=== PATIENT | male | born 1965 | race Caucasian/White ===

== ENCOUNTER 2023-03-06 05:17 | Inpatient (IN) | payer MEDICAID ==
[2023-02-27 10:57] LABS: BASOPHILS # (AUTO) 0.1 X10'3 (0-0.2); BASOPHILS % (AUTO) 0.8 % (0-1); EOSINOPHILS # (AUTO) 0.3 X10'3 (0-0.9); EOSINOPHILS % (AUTO) 3.2 % (0-6); LYMPHOCYTES # (AUTO) 2.9 X10'3 (1.1-4.8); LYMPHOCYTES % (AUTO) 27.2 % (21-51); MEAN CORPUSCULAR HEMOGLOBIN 28.6 PG (27.0-31.0); MEAN CORPUSCULAR HGB CONC 33.3 g/dL (33.0-36.5); MEAN PLATELET VOLUME 8.3 FL (7.4-10.4); MONOCYTES # (AUTO) 0.9 X10'3 (0-0.9); MONOCYTES % (AUTO) 8.7 % (2-12); NEUTROPHILS # (AUTO) 6.3 X10'3 (1.8-7.7); NEUTROPHILS % (AUTO) 60.1 % (42-75); PRE OP HEMATOCRIT 41.9 % (42.0-52.0); PRE OP PLATELET COUNT 364 X10'3 (140-440); PRE OP WHITE BLOOD COUNT 10.5 10'3 (4.8-10.8); RED BLOOD COUNT 4.87 X10'6 (4.70-6.10); RED CELL DISTRIBUTION WIDTH 15.2 % (11.5-14.5)
[2023-02-27 10:57] LABS: BILIRUBIN,URINE NEGATIVE (Neg); CLARITY,URINE CLEAR (Clear); COLOR,URINE YELLOW (Yellow); GLUCOSE, URINE 100 mg/dl (Neg); KETONES,URINE NEGATIVE (Neg); LEUKOCYTE ESTERASE ,URINE NEGATIVE (Neg); NITRITES, URINE NEGATIVE (Neg); OCCULT BLOOD,URINE NEGATIVE (Neg); PROTEIN,URINE NEGATIVE (Neg); UROBILINOGEN,URINE 0.2 E.U/dL (0.2-1.0)
[2023-02-27 11:03] LABS: UA COLLECTION TYPE NON-SPECIFIED
[2023-02-27 11:11] LABS: ALBUMIN 3.7 G/DL (3.4-5.0); ALBUMIN/GLOBULIN RATIO 0.9 (1.1-1.5); ALKALINE PHOSPHATASE 108 IU/L (46-116); BLOOD UREA NITROGEN 21 MG/DL (7-18); BUN/CREATININE RATIO 20.2 (10.0-20.0); CALCIUM 8.9 MG/DL (8.5-10.1); CHLORIDE 102 MMOL/L (99-107); CREATININE 1.04 MG/DL (0.60-1.10); PRE OP ALT 25 U/L (30-65); PRE OP ANION GAP 11 (8-16); PRE OP AST 16 U/L (10-37); PRE OP BILIRUB, TOTAL 0.3 MG/DL (0.0-1.0); PRE OP POTASSIUM 3.4 MMOL/L (3.4-5.1); PRE OP SODIUM 136 MMOL/L (135-145); TOTAL CARBON DIOXIDE 23.2 MMOL/L (24-32); TOTAL PROTEIN 7.6 G/DL (6.4-8.2); eGFR 73 ML/MIN
[2023-02-27 11:23] LABS: PRE OP GLUCOSE 254 MG/DL (70-104)
[2023-02-27 11:58] LABS: HEMOGLOBIN A1C 10.6 % (4.5-6.2)
[2023-03-06] VITALS (29 sets, daily range): BP systolic 114–157; BP diastolic 76–106; PULSE 65–97; RESP 11–21; TEMP 96.3–98.4; O2SAT 91–99
[~2023-03-06] VITALS: Ht 160 cm; Wt 110.0 kg
[~2023-03-06 05:17] MED LIST: GLYB2.5T4 PO; INSU100I39 SQ; LANTUS SQ; LEVO50TA8 PO; MELO-102 PO; METF-438 PO; SIMV-42 PO; ZOLP10TA PO; ringers solution, lacted 1,000 ML IV SCH
[2023-03-06] MEDS ORDERED: cefazolin 2gm/D5W 100mL 100 ML IV ONE (05:30)
[2023-03-06] MEDS ORDERED: famotidine 20mg tablet PO ONE (05:30)
[2023-03-06] MEDS ORDERED: BUPIVAcaine/PF 2.5 mg/ml (0.25%) 30ml vial ONE (08:03)
[2023-03-06] MEDS ORDERED: labetalol 20mg/4ml (5mg/ml) syringe IV PRN (09:05)
[2023-03-06] MEDS ORDERED: meperidine/PF 25mg/ml syringe IV PRN ×3 (09:05)
[2023-03-06] MEDS ORDERED: ondansetron/PF 4mg/2ml inj IV PRN ×2 (09:05→09:50)
[2023-03-06] MEDS ORDERED: enalaprilat dihydrate 2.5mg/2ml vial IV PRN (09:05)
[2023-03-06] MEDS ORDERED: morphine 2 MG/ML inj. syringe IV PRN (09:05)
[2023-03-06] MEDS ORDERED: ringers solution, lacted 1,000 ML IV SCH (09:05)
[2023-03-06] MEDS ORDERED: morphine 4 MG/ML inj SYRINge IV PRN (09:05)
[2023-03-06] MEDS ORDERED: ketorolac trometh. 30mg/ml inj. IV ONE (09:05)
[2023-03-06] MEDS ORDERED: proCHLORperazine 10 MG/2 ml inj IV PRN (09:05)
[2023-03-06] MEDS ORDERED: midazolam 1 mg/ML 2ml injection ONE (09:11)
[2023-03-06] MEDS ORDERED: fentaNYL /PF 50mcg/ml 5ml ampule ONE (09:11)
[2023-03-06] MEDS ORDERED: rocuronium 10mg/ml inj IV ONE ×2 (09:13→09:14)
[2023-03-06] MEDS ORDERED: dexamethasone sod phosphate 4mg/ml inj. ONE (09:14)
[2023-03-06] MEDS ORDERED: LIDOcaine 2% (20mg/ml) 5ml vial ONE (09:14)
[2023-03-06] MEDS ORDERED: propofol inj 20 ML IV ONE (09:14)
[2023-03-06] MEDS ORDERED: HYDROcodone/acetaminophen 5mg/325mg tablet PO PRN (09:50)
[2023-03-06] MEDS ORDERED: ondansetron/PF 4mg/2ml inj ONE (09:56)
[2023-03-06] MEDS ORDERED: BUPIVAcaine/PF 2.5 mg/ml (0.25%) 30ml vial IJ ONE (10:07)
[2023-03-06] MEDS ORDERED: neostigmine methylsulfate 1 MG/ML 10ml vial ONE (10:30)
[2023-03-06] MEDS ORDERED: glycopyrrolate 0.2mg/ml inj ONE (10:30)
[2023-03-06] MEDS ORDERED: ketorolac trometh. 30mg/ml inj. ONE (10:41)
--- NOTE | 2023-03-06 10:48 | NUR ---
Received from OR via [facility], accompanied by Anesthesiologist and report given by RAMIN Anesthesiologist. PATIENT WAKING UP, NO S/S OF PAIN, V/S WNL, SCD ON , PIV 20G RIGHT FOREARM, ABDOMEN DRESSING C/D/I WITH ABDOMINAL BINDER. HOU CATHETER DRAINING CLEAR YELLOW URINE. Addendum: 03/06/23 at 1115 by Pramod Sun RN Amended: Links added.
[2023-03-06] MEDS ORDERED: VANCOmycin 1250MG/NS 250ml Bag 250 ML IV SCH (11:00)
[2023-03-06] MEDS ORDERED: ringers solution, lacted 1,000 ML IV ONE (11:25)
[2023-03-06] MEDS ORDERED: MESSAGE TO PHARMACY PO ONE (11:45)
[2023-03-06] MEDS ORDERED: glucagon, human recombinant 1mg kit SUBCUT PRN (11:45)
[2023-03-06] MEDS ORDERED: dextrose 50%-water 50ml dispensing syringe IV PRN ×2 (11:45)
[2023-03-06] MEDS ORDERED: DEXTROSE 15 GM of carb/4 tabs (each vial/BOTTLE has 4 tablets) PO PRN ×2 (11:45)
[2023-03-06] MEDS ORDERED: VANCOmycin 1250MG/NS 250ml Bag 250 ML IV ONE (11:55)
[2023-03-06] MEDS ORDERED: polyvinyl alcohol ophthalmic drops 15ml bottle EACHEYE PRN (12:10)
[2023-03-06 12:43] LABS: CREATININE 0.99 MG/DL (0.60-1.10); eCRCL 65 ML/MIN; eGFR 77 ML/MIN
--- NOTE | 2023-03-06 14:08 | NUR ---
PATIENT HAS MET ALL CRITERIA FOR TRANSFER TO ORTHO FLOOR. VSS. DRESSINGS INTACT. BED LOW, CALL LIGHT PRESENT AND 2 RAILS UP. RN PRESENT TO ACCEPT CARE OF PATIENT AND REPORT HAS BEEN CALLED. ALL QUESTIONS ANSWERED TO ACCEPTING RN. Addendum: 03/06/23 at 1412 by Pramod Sun RN Amended: Links added.
--- NOTE | 2023-03-06 14:10 | NUR ---
Assumed patient care, transported from [facility] via gurney. Patient alert and appropriate at time of admission. Oriented to fall precautions, call light and room. Questions answered. Shadowing noted to AJ Salinas, yasmany in place.
[2023-03-06] MEDS: HYDROcodone/acetaminophen 10/325mg tab PO PRN (14:59)
--- NOTE | 2023-03-06 15:21 | NUR ---
Critical 4.5 lactic acid reported by lab, notified with orders to repeat level and swap fluid for NS.
[2023-03-06] MEDS: normal saline 1000ml 1,000 ML IV SCH (15:52)
--- NOTE | 2023-03-06 18:00 | NUR ---
I have reviewed and agree with interventions, assessments, and documentation by Mora Austin LVN.
--- NOTE | 2023-03-06 18:39 | NUR ---
Patient in room ORTHO 4018. I have received report from GURMEET Velazco and had the opportunity to ask questions and assume patient care.
[2023-03-06] MEDS: insulin Lispro (HumaLOG) vial - multi-dose SQ SCH ×2 (19:02→20:39)
[2023-03-06] MEDS: vancomycin/NS 1 GM ADD-VANTAGE 250 ML IV SCH (19:59)
[2023-03-06] MEDS: heparin, porcine 5000 units/ml vial SQ SCH (20:06)
[2023-03-06] MEDS ORDERED: atorvastatin 10mg tablet PO SCH (21:00)
[2023-03-06] MEDS ORDERED: zolpidem 5mg tablet PO SCH (21:00)
[2023-03-06] MEDS ORDERED: insulin glargine (Lantus) pen - multi-dose SQ SCH ×2 (21:00)
[2023-03-06] MEDS: lansoprazole 15mg solutab PO SCH (22:30)
[2023-03-07] MEDS ORDERED: VANCOmycin 1250MG/NS 250ml Bag 250 ML IV SCH (01:00)
[2023-03-07] MEDS: normal saline 1000ml 1,000 ML IV SCH ×2 (01:20→03:37)
[2023-03-07 01:47] VITALS: BP 144/87; PULSE 86; RESP 16; TEMP 97.4; O2SAT 95
[2023-03-07] MEDS: HYDROcodone/acetaminophen 10/325mg tab PO PRN (02:19)
[2023-03-07] MEDS: vancomycin/NS 1 GM ADD-VANTAGE 250 ML IV SCH ×2 (03:36→11:48)
[2023-03-07 06:00] VITALS: BP 159/95; PULSE 93; RESP 16; TEMP 97.1; O2SAT 95
--- NOTE | 2023-03-07 06:18 | NUR ---
Problems reprioritized. Patient report given, questions answered & plan of care reviewed with KETTY Gerard.
[2023-03-07] MEDS ORDERED: levoTHYROXINE 25mcg tablet PO SCH (07:00)
[2023-03-07] MEDS: lansoprazole 15mg solutab PO SCH (07:20)
[2023-03-07] MEDS: heparin, porcine 5000 units/ml vial SQ SCH (07:20)
[2023-03-07 07:31] LABS: BASOPHILS # (AUTO) 0.1 X10'3 (0-0.2); BASOPHILS % (AUTO) 0.6 % (0-1); EOSINOPHILS % (AUTO) 0.2 % (0-6); HEMATOCRIT 36.2 % (42.0-52.0); HEMOGLOBIN 11.7 g/dl (14.0-17.9); LYMPHOCYTES # (AUTO) 1.3 X10'3 (1.1-4.8); LYMPHOCYTES % (AUTO) 8.5 % (21-51); MEAN CORPUSCULAR HEMOGLOBIN 27.8 PG (27.0-31.0); MEAN CORPUSCULAR HGB CONC 32.3 g/dL (33.0-36.5); MEAN PLATELET VOLUME 8.2 FL (7.4-10.4); MONOCYTES # (AUTO) 1.4 X10'3 (0-0.9); MONOCYTES % (AUTO) 9.3 % (2-12); NEUTROPHILS # (AUTO) 12.7 X10'3 (1.8-7.7); NEUTROPHILS % (AUTO) 81.4 % (42-75); PLATELET COUNT 303 X10'3 (140-440); RED BLOOD COUNT 4.21 X10'6 (4.70-6.10); RED CELL DISTRIBUTION WIDTH 15.3 % (11.5-14.5); WHITE BLOOD COUNT 15.6 X10'3 (4.5-11.0)
[2023-03-07 07:56] LABS: ANION GAP 10 (8-16); BLOOD UREA NITROGEN 17 MG/DL (7-18); BUN/CREATININE RATIO 16.2 (10.0-20.0); CALCIUM 8.5 MG/DL (8.5-10.1); CHLORIDE 104 MMOL/L (99-107); CHOLESTEROL 141 MG/DL (0-200); CREATININE 1.05 MG/DL (0.60-1.10); GLUCOSE 203 MG/DL (70-104); HDL CHOLESTEROL 35 MG/DL (35-60); LDL CHOLESTEROL 85 MG/DL (50-100); POTASSIUM 3.7 MMOL/L (3.5-5.1); SODIUM 135 MMOL/L (135-145); TOTAL CARBON DIOXIDE 21.2 MMOL/L (24-32); TRIGLYCERIDES 113 MG/DL (20-135); eCRCL 61 ML/MIN; eGFR 72 ML/MIN
[2023-03-07 08:00] VITALS: RESP 15; O2SAT 96
[2023-03-07] MEDS: insulin Lispro (HumaLOG) vial - multi-dose SQ SCH ×2 (08:56→13:30)
[2023-03-07] MEDS ORDERED: pantoprazole 40mg Tablet.DR PO SCH (09:35)
[2023-03-07 10:00] VITALS: BP 133/82; PULSE 72; RESP 15; TEMP 98.4; O2SAT 96
[2023-03-07] MEDS ORDERED: METR-159 PO (11:16)
[2023-03-07] MEDS ORDERED: PANT40TA54 PO (11:16)
[2023-03-07] MEDS ORDERED: VANCOMYCIN LEVEL IV ONE (11:30)
--- NOTE | 2023-03-07 15:07 | NUR ---
DM Consult: Pt admit DX infected hernia mesh hx incision site issues since 2019 unable to have surgery until now and DM A1C 10.6% per EMR. Pt s/p OR 03/06 for infected mesh removal and open repair of recurrent incisional hernia [id number] wound per EMR. Pt seen by RD at bedside for written/verbal high protein/DM diet eds w/ RD contact information provided. Per pt, takes meds per Rx basal coverage, short acting adjusted based on Glu, metformin, and glyburide though admits trouble w/ numbers since head injury. Per pt, follows lower carb diet at home acknowledges can overeat at times however only rarely. Pt reports has PCP prior to recently moving to [place] however she has kept cancelling his appointments so he has been unable to see her looking for new PCP in [place]. Pt reports phone is broken awaiting new phone in mail but refuses to use internet since doesn't like technology. RD notified CM of pt situation; CM provided [facility] information to patient in cases needs to see physician. RD encouraged pt to contact dietitian's office if further nutrition questions/concerns. Pt on clear liquids post-op though now discharged per EMR. Addendum: 03/07/23 at [address] Amended: Links added.
== END 2023-03-07 14:45 | disposition home or self-care (01) | DRG 711 ==
LOC: PAS 05:17 → PACU 09:54 → ORTHO 4S 14:00
PROVIDERS: ADMIT Surgery; ATTEND Surgery
PROC: 0WQF0ZZ Repair Abdominal Wall, Open Approach (ICD-10-PCS; 2023-03-06)
PROC: 5A09357 Assistance with Respiratory Ventilation, Less than 24 Consecutive Hours, Continuous Positive Airway Pressure (ICD-10-PCS; 2023-03-06)
PROC: 0WPF0JZ Removal of Synthetic Substitute from Abdominal Wall, Open Approach (ICD-10-PCS; 2023-03-06)
PROC: 0WJF4ZZ Inspection of Abdominal Wall, Percutaneous Endoscopic Approach (ICD-10-PCS; principal; 2023-03-06 09:10)
DX: T85.79XA Infection and inflammatory reaction due to other internal prosthetic devices, implants and grafts, initial encounter (principal); E03.9 Hypothyroidism, unspecified; E11.9 Type 2 diabetes mellitus without complications; F32.A Depression, unspecified; E78.5 Hyperlipidemia, unspecified; K43.2 Incisional hernia without obstruction or gangrene; K66.0 Peritoneal adhesions (postprocedural) (postinfection); Y83.2 Surgical operation with anastomosis, bypass or graft as the cause of abnormal reaction of the patient, or of later complication, without mention of misadventure at the time of the procedure; Y92.89 Other specified places as the place of occurrence of the external cause
CPT/HCPCS: 36415; 80048; 80053; 80061; 80202; 81003; 82565; 82948; 83036; 83605; 84145; 85025; 87040; 87070; 87075; 87077; 87102; 87186; 93005; 97116; 97161; 97530; A4215; A4615; A4618; A6253; A6446; A6449; A7000; G0378; J0690; J1100; J1644; J1815; J1885; J2175; J2250; J2405; J2704; J2710; J3010; J3370; J3490; J7030; J7120